=== PATIENT | female | born 1990 | race Caucasian/White ===

== ENCOUNTER 2018-08-24 13:30 | Emergency (ER) | payer SELFPAY ==
[2018-08-24 15:00] LABS: URINE BLOOD (Dip) POC Negative (NEGATIVE); URINE GLUCOSE (Dip) POC Negative (NEGATIVE); URINE KETONES (Dip) POC Negative (NEGATIVE); URINE LEUKOCYTE EST (Dip) POC Trace (NEGATIVE); URINE NITRITE (Dip) POC Negative (NEGATIVE); URINE TOTAL PROTEIN POC Negative (NEGATIVE)
== END 2018-08-24 15:27 | disposition home or self-care (01) ==
LOC: FTE 15:27
DX: R30.0 Dysuria (principal)
CPT/HCPCS: 81003; 81025; 99283